=== PATIENT | female | born 1990 | race Hispanic/Latino ===

== ENCOUNTER 2018-01-09 12:44 | Emergency (ER) | payer OTHER, SELFPAY ==
[2018-01-09 14:14] LABS: HIV (1/2) Antibody/Antigen Non-Reactive (NonReactive); HIV 1/2 INDEX 0.11 S/CO (<1.00); Hep B Surf AB Non-Reactive (NonReactive); Hep C IgG Ab Non-Reactive (NonReactive); Hep C Index 0.05 S/CO (0-0.79)
== END 2018-01-09 14:00 | disposition home or self-care (01) ==
LOC: ERS 12:44
DX: O9A.212 Injury, poisoning and certain other consequences of external causes complicating pregnancy, second trimester (principal); S80.12XA Contusion of left lower leg, initial encounter; W22.8XXA Striking against or struck by other objects, initial encounter; Z3A.20 20 weeks gestation of pregnancy
CPT/HCPCS: 36415; 86706; 86803; 87389; 99283

== ENCOUNTER 2018-04-23 15:33 | Day surgery (SDC) | payer OTHER ==
[2018-04-23 15:57] VITALS: BP 104/72; TEMP 98.6
[2018-04-23 16:26] VITALS: BMI 27.1
--- NOTE | 2018-04-23 17:08 | PDOC.LDHP ---
Labor and Delivery H&P Chief complaint: decreased movement HPI: 28 yo @ 34.2 by certain dates presents for CC of decreased movement. Pt reports she has not felt baby move as much since yesterday around six pm. Since she has arrived on l&d she reports pos movement. She denies LOF, vaginal bleeding, vaginal discharge. She has felt 3 contractions since yesterday. Her next scheduled appointment with Dr Haji is 05/03/18. Per pt she is on her last day of tamiflu and has been afebrile for >3 days. Dx based on symptoms and pos flu swab in clinic (pt received flu vaccine this year). She reports she is eating and drinking well. Otherwise no complaints. ROS: Gen: Denies fever chills HEENT: Denies headache, changes in vision CV: Deniesw CP palpiations Respiratory: Reports some SOB since baby has grown, no pleurisy Abd: Denies NVDC, denies abdominal pain Extremities: No swelling Current gestational age (weeks): 34 (+2) Due date: 06/02/18 Dating criteria: last menstrual period Grav: 1 Para: 0 Current complications: none Abnormal US findings: No (No US reports available for review) Past Medical History: None Current medications: pre- vitamins Previous surgical history: none Allergies/Adverse Reactions: Allergies Allergy/AdvReac Type Severity Reaction Status Date / Time No Known Allergies Allergy Unverified 04/23/18 16:23 Social history: none - Physical Exam Vital signs reviewed and normal: yes General: NAD Heart: RRR Lungs: CTAB Abdomen: NTTP Extremeties: no edema FHT: category 1 (Baseline 130s pos accels no decels and moderate variability) [place] contractions every: One total in >20 min - OB Labs Blood type: unknown RH: unknown Antibody Screen: unknown HIV: unknown RPR: unknown HEPSAg: unknown 1 hour GCT: unknown GBS: unknown Urine drug screen: not done - Assessment 1) Decreased movement - Plan -: 1) decreased movement: -pt instructed on labor/ return precautions - kick counts recommended and information provided - fht showed baseline 130s mod variability and pos accels without decelerations , reactive strip - all questions answered - will dc to home with kick count instructions and recommend close f/u with PCP Dr. Haji Addendum - Attending - Attending Attestation Date/Time: 04/23/18 180 I personally evaluated the patient and discussed the management with Dr. Barbour. I agree with the History, Examination, Assessment and Plan documented above.
== END 2018-04-23 17:13 | disposition home or self-care (01) ==
LOC: L&D/OP 15:33
PROVIDERS: ATTEND Family Medicine
DX: O36.8130 Decreased fetal movements, third trimester, not applicable or unspecified (principal); Z3A.34 34 weeks gestation of pregnancy; Z79.899 Other long term (current) drug therapy
CPT/HCPCS: 99282

== ENCOUNTER 2018-05-25 10:15 | Day surgery (SDC) | payer OTHER ==
[2018-05-25 11:56] LABS: Hemoglobin 12.8 g/dL (12.0-16.0); Mean Corpuscular HGB CONC 33.5 g/dL (32.0-36.0); Mean Corpuscular Hemoglobin 29.7 pg (27.0-31.0); Mean Corpuscular Volume 88.9 fL (78.0-98.0); Mean Platelet Volume 11.3 fL (7.4-10.4); Platelet Count 136 thou/uL (130-400); RBC Distribution Width 12.7 % (11.5-14.5); Red Blood Cell (RBC) Count 4.31 mill/uL (4.20-5.40); White Blood Cell (WBC) Count 7.8 thou/uL (4.8-10.8)
[2018-05-25 12:04] LABS: ALT (SGPT) 16 U/L (8-55); AST (SGOT) 27 U/L (5-34); Albumin 2.9 g/dL (3.5-5.0); Alkaline Phosphatase 354 U/L (40-150); Anion Gap 10 mmol/L (10-20); BUN (Urea Nitrogen) Less than 4 mg/dL (7.0-18.7); Bilirubin, Total 0.5 mg/dL (0.2-1.2); Calc. Creatinine Clearance 0 mL/min (70-130); Calcium 8.7 mg/dL (7.8-10.44); Carbon Dioxide 21 mmol/L (22-29); Chloride 110 mmol/L (98-107); Estimated GFR-MDRD Greater than 90; Globulin 2.7 g/dL (2.4-3.5); Glucose 68 mg/dL (70-105); Potassium 3.5 mmol/L (3.5-5.1); Protein, Total 5.6 g/dL (6.0-8.3); Sodium 137 mmol/L (136-145)
[2018-05-25 12:34] LABS: Bilirubin Negative (Negative); Blood, Urine Negative (Negative); Clarity CLOUDY (Clear); Glucose, Urine (Dipstick) Negative (Negative); Leukocyte Large (Negative); Nitrite Negative (Negative); Protein, Urine (Dipstick) Negative (Neg-Trace); Specific Gravity, Urine 1.005 (1.002-1.036); Urobilinogen 0.2 mg/dL (0.2-1.0)
[2018-05-25 12:35] LABS: Bacteria/HPF 1+ HPF (None Seen); Squamous Epithelial 21-50 HPF (0-3)
[2018-05-25 12:43] VITALS: BMI 25.0
[2018-05-25 12:44] LABS: Pathc Cast-AUWi Flag 4.48 (0-2.49)
[2018-05-25 12:45] LABS: Hyaline Casts/LPF 0-3 HYALINE CAST LPF (0-3 Hyaline); Manual Microscopic Reviewed? No Path Casts Seen
--- NOTE | 2018-05-26 05:28 | SS ---
DATE OF ADMISSION: 05/25/2018 DATE OF DISCHARGE: 05/25/2018 REGULAR PHYSICIAN: Umang Haji MD EVALUATING PHYSICIAN: Carlos Lawton MD CHIEF COMPLAINT: Swelling of hands and feet. HISTORY OF PRESENT ILLNESS: Ms. Cruz is a 28-year-old G1, P0 with an estimated date of confinement of 06/04/2018. She presents complaining of swelling of her hands and feet over the last 24 hours. She denies headache, visual changes, or right upper quadrant pain. Her care has been with Dr. Haji and this has been without complications. PAST MEDICAL HISTORY: None. PAST SURGICAL HISTORY: None. CURRENT MEDICATIONS: vitamins. ALLERGIES: NO KNOWN ALLERGIES. SOCIAL HISTORY: She denies tobacco or alcohol use. She denies drug use. FAMILY HISTORY: Unremarkable. REVIEW OF SYSTEMS: She denies nausea, vomiting, fever, chills, ruptured membranes, or vaginal bleeding. PHYSICAL EXAMINATION: VITAL SIGNS: Initial blood pressure in triage was 104/69, pulse is 64, blood pressures after the return of her laboratories are 90s over 60s. GENERAL: She is in no acute distress. ABDOMEN: Soft, nontender, and gravid. PELVIC: Deferred. heart tones are stable. There are no decelerations. No significant uterine contractions are seen. LABORATORIES: Platelets returned at 130,000. Her liver function tests are normal. Her total bilirubin is normal. On urinalysis, there is no urine protein seen. ASSESSMENT: 1. Term intrauterine . 2. No evidence of preeclampsia at this time. PLAN: The patient will be discharged home. She was given complete precautions in [place] and she is set to have an appointment with Dr. Haji later this week. Job ID: [id number]
== END 2018-05-25 13:47 | disposition home or self-care (01) ==
LOC: L&D/OP 10:15
PROVIDERS: ATTEND Family Medicine
DX: O99.89 Other specified diseases and conditions complicating pregnancy, childbirth and the puerperium (principal); R22.33 Localized swelling, mass and lump, upper limb, bilateral; R22.43 Localized swelling, mass and lump, lower limb, bilateral; Z79.899 Other long term (current) drug therapy
CPT/HCPCS: 36415; 80053; 81003; 81015; 85027; 99283

== ENCOUNTER 2018-05-31 18:03 | Inpatient (IN) | payer OTHER, SELFPAY ==
[2018-05-31] MEDS ORDERED: Ondansetron PF 4 MG/2 ML Vial IVP PRN ×2 (18:51→23:43)
[2018-05-31] MEDS ORDERED: Misoprostol 200 MCG TAB PR PRN (18:51)
[2018-05-31] MEDS ORDERED: Diphenoxylate HCl/Atropine Tablet PO PRN (18:51)
[2018-05-31] MEDS ORDERED: Methylergonovine 0.2 MG/ML VIAL IM PRN (18:51)
[2018-05-31] MEDS ORDERED: NS / Oxytocin 40 units/1000ml 1,000 ML IV PRN (18:51)
[2018-05-31] MEDS ORDERED: HYDROcodone/Acetaminophen 5/325 mg Tablet PO PRN (18:51)
[2018-05-31] MEDS ORDERED: Ibuprofen 800 MG TAB PO PRN (18:51)
[2018-05-31] MEDS ORDERED: Butorphanol Tartrate 1 MG/ML VIAL SLOW IVP PRN (18:51)
[2018-05-31] MEDS ORDERED: Carboprost 250 MCG/ML AMP IM PRN (18:51)
[2018-05-31] MEDS ORDERED: Lidocaine 1% (PF) 30 ML VIAL SC PRN (18:51)
[2018-05-31] MEDS ORDERED: NS w/ Oxytocin 10 units 500 ML IV SCH ×2 (19:00)
[2018-05-31 19:07] VITALS: BMI 22.4
[2018-05-31] MEDS: Lactated Ringer's 1,000 ML IV SCH ×2 (19:23→23:52)
[2018-05-31 20:33] LABS: Hemoglobin 13.3 g/dL (12.0-16.0); Mean Corpuscular HGB CONC 33.1 g/dL (32.0-36.0); Mean Corpuscular Hemoglobin 29.9 pg (27.0-31.0); Mean Corpuscular Volume 90.2 fL (78.0-98.0); Mean Platelet Volume 11.8 fL (7.4-10.4); Platelet Count 145 thou/uL (130-400); RBC Distribution Width 12.9 % (11.5-14.5); Red Blood Cell (RBC) Count 4.46 mill/uL (4.20-5.40); White Blood Cell (WBC) Count 13.9 thou/uL (4.8-10.8)
[2018-05-31 21:10] LABS: Syphilis Antibody Nonreactive (Nonreactive); Syphilis Antibody Index 0.02 S/CO (<1.00 Non-Reactive)
[2018-05-31] MEDS ORDERED: Fentanyl 4 mcg/Bup 0.1% Cadd 100 ML ONE (23:06)
[2018-05-31 23:10] LABS: Hep B Surf Ag Non-Reactive S/CO (NonReactive)
[2018-05-31] MEDS ORDERED: Lactated Ringer's 500 ML IV PRN (23:43)
[2018-05-31] MEDS ORDERED: Promethazine HCl 25 MG/ML VIAL IM PRN (23:43)
[2018-05-31] MEDS ORDERED: Acetaminophen 325 MG TAB PO PRN (23:43)
[2018-05-31] MEDS ORDERED: Naloxone HCl 0.4 mg/ml Vial IVP PRN ×2 (23:43)
[2018-05-31] MEDS ORDERED: Eucerin (Mineral Oil/Petrolatum,White) 30 gm Jar TOP PRN (23:43)
[2018-05-31] MEDS ORDERED: ePHEDrine/0.9% NaCl/PF SYRINGE 50 mg/10 ml SLOW IVP PRN (23:43)
[2018-05-31] MEDS ORDERED: diphenhydrAMINE 50 MG/ML VIAL IVP PRN (23:43)
[2018-05-31] MEDS ORDERED: Fentanyl 4 mcg/Bupivacaine 0.1% Cassette 100 ML EPIDURAL SCH (23:45)
[2018-05-31] MEDS ORDERED: Communication Order-Pharmacy FS SCH (23:45)
[2018-06-01] MEDS ORDERED: NS / Oxytocin 40 units/1000ml 1,000 ML IV SCH (03:48)
[2018-06-01] MEDS ORDERED: Milk Of Magnesia 30 ML UDCUP PO PRN (03:48)
[2018-06-01] MEDS ORDERED: diphenhydrAMINE 25 MG CAP PO PRN (03:48)
[2018-06-01] MEDS ORDERED: Bisacodyl 10 MG SUPP PR PRN (03:48)
[2018-06-01] MEDS ORDERED: HYDROcodone/Acetaminophen 5/325 mg Tablet PO PRN ×2 (03:48)
[2018-06-01] MEDS ORDERED: Benzocaine/Menthol 20-0.5% 60 ML CAN TOP PRN (03:48)
[2018-06-01] MEDS ORDERED: Ondansetron PF 4 MG/2 ML Vial IVP PRN (03:48)
[2018-06-01] MEDS ORDERED: Preparation H Ointment 28 GM TUBE PR PRN (03:48)
[2018-06-01] MEDS ORDERED: Lanolin Ointment 7 GM TUBE TOP PRN (03:48)
[2018-06-01] MEDS: Ibuprofen 800 MG TAB PO SCH ×3 (06:29→21:24)
[2018-06-01] MEDS: Ferrous Sulfate 325 MG TAB PO SCH ×2 (08:50→15:17)
[2018-06-01] MEDS: Docusate Calcium (SURFAK) 240 MG CAP PO SCH ×2 (10:34→21:24)
[2018-06-01] MEDS: Prenatal Vitamin 1 TAB PO SCH (10:34)
[2018-06-01] MEDS ORDERED: Bupivacaine HCl 0.5%/Epinephrine 1:200,000/PF 30 ml Vial ONE (18:00)
[2018-06-02] MEDS: Ibuprofen 800 MG TAB PO SCH ×2 (06:02→14:54)
[2018-06-02] MEDS: Ferrous Sulfate 325 MG TAB PO SCH (09:43)
[2018-06-02] MEDS: Docusate Calcium (SURFAK) 240 MG CAP PO SCH (09:43)
[2018-06-02] MEDS: Prenatal Vitamin 1 TAB PO SCH (09:43)
[2018-06-02 15:54] VITALS: BP 108/59; TEMP 97.9
== END 2018-06-02 18:13 | disposition home or self-care (01) | DRG 807 ==
LOC: L&D/OP 18:03 → L&D 19:03 → 3SE 06-01 08:17
PROVIDERS: ADMIT Family Medicine; ATTEND Family Medicine
PROC: 10E0XZZ Delivery of Products of Conception, External Approach (ICD-10-PCS; principal; 2018-06-01)
PROC: 0HQ9XZZ Repair Perineum Skin, External Approach (ICD-10-PCS; 2018-06-01)
DX: O70.0 First degree perineal laceration during delivery (principal); Z37.0 Single live birth; Z3A.39 39 weeks gestation of pregnancy
CPT/HCPCS: 36415; 51702; 85027; 86780; 86850; 86900; 86901; 87340; 99285; J0595; J0670

== ENCOUNTER 2019-09-13 10:39 | Emergency (ER) | payer MEDICAID, OTHER ==
[2019-09-14 16:07] LABS: SARS-CoV-2 MS2 Positive; SARS-CoV-2 N Gene Negative; SARS-CoV-2 S Gene Negative; SARS-CoV-2 orf1ab Negative
== END 2019-09-13 11:19 | disposition home or self-care (01) ==
LOC: ERS 10:39
DX: Z20.828 Contact with and (suspected) exposure to other viral communicable diseases (principal)
CPT/HCPCS: 87635; 99283; U0003